=== PATIENT | female | born 1935 | race Caucasian/White ===

== ENCOUNTER 2017-01-04 07:47 | Day surgery (SDC) | payer MEDICARE ==
[~2017-01-04] VITALS: Ht 168.9 cm; Wt 63.0 kg
[~2017-01-04 07:47] MED LIST: ASPIRIN LOW DOS81 M1 PO; CALCIUM500 M3 PO; CILOSTAZOL100 MG PO; LEVOTHYROXIN125 MC1 PO; SIMVASTATIN40 MG PO; VITAMIN D2000 UNIT PO
[2017-01-04 10:00] VITALS: BP 121/64
== END 2017-01-04 10:15 | disposition home or self-care (01) ==
LOC: ENDO 07:47 → ORM 11:00
PROVIDERS: ATTEND Internal Medicine Gastroenterology
PROC: 0DB48ZX Excision of Esophagogastric Junction, Via Natural or Artificial Opening Endoscopic, Diagnostic (ICD-10-PCS; principal; 2017-01-04)
PROC: 0DB78ZX Excision of Stomach, Pylorus, Via Natural or Artificial Opening Endoscopic, Diagnostic (ICD-10-PCS; 2017-01-04)
DX: R10.13 Epigastric pain (principal); R14.0 Abdominal distension (gaseous); K21.0 Gastro-esophageal reflux disease with esophagitis; K59.00 Constipation, unspecified; K57.90 Diverticulosis of intestine, part unspecified, without perforation or abscess without bleeding; K80.20 Calculus of gallbladder without cholecystitis without obstruction; K64.8 Other hemorrhoids; E03.9 Hypothyroidism, unspecified; E78.00 Pure hypercholesterolemia, unspecified; I73.9 Peripheral vascular disease, unspecified; Z86.010 Personal history of colon polyps; K22.5 Diverticulum of esophagus, acquired; K29.70 Gastritis, unspecified, without bleeding; K31.9 Disease of stomach and duodenum, unspecified; Q40.8 Other specified congenital malformations of upper alimentary tract; K29.80 Duodenitis without bleeding; K44.9 Diaphragmatic hernia without obstruction or gangrene; K25.9 Gastric ulcer, unspecified as acute or chronic, without hemorrhage or perforation; K26.9 Duodenal ulcer, unspecified as acute or chronic, without hemorrhage or perforation